=== PATIENT | female | born 1940 | race Caucasian/White ===

== ENCOUNTER 2019-03-22 11:23 | Emergency (ER) | payer MEDICARE ==
[~2019-03-22] VITALS: Ht 170.2 cm; Wt 65.0 kg
[2019-03-22] MEDS ORDERED: polyethylene glycol 3350 17gm powd pack PO SCH (12:30)
[2019-03-22] MEDS ORDERED: polyethylene glycol 3350 17gm powd pack PO ONE (12:30)
[2019-03-22 15:28] VITALS: BP 159/71
== END 2019-03-22 15:30 | disposition home or self-care (01) ==
LOC: ER 11:23
DX: K59.01 Slow transit constipation (principal); G89.29 Other chronic pain; Z88.0 Allergy status to penicillin
CPT/HCPCS: 74021; 99284

== ENCOUNTER 2019-10-25 12:13 | Emergency (ER) | payer MEDICARE ==
[~2019-10-25] VITALS: Ht 170.2 cm; Wt 66.5 kg
[2019-10-25] MEDS ORDERED: normal saline 1000ML IV soln IVB ONE (14:40)
[2019-10-25 14:57] LABS: BASOPHILS # (AUTO) 0.1 X10'3 (0-0.2); BASOPHILS % (AUTO) 0.9 % (0-1); EOSINOPHILS % (AUTO) 0.7 % (0-6); HEMATOCRIT 43.2 % (35.0-45.0); HEMOGLOBIN 14.7 g/dl (12.0-16.0); LYMPHOCYTES # (AUTO) 1.1 X10'3 (1.1-4.8); LYMPHOCYTES % (AUTO) 15.9 % (21-51); MEAN CORPUSCULAR HEMOGLOBIN 32.3 PG (27.0-31.0); MEAN CORPUSCULAR VOLUME 95.1 FL (78-98); MEAN PLATELET VOLUME 8.7 FL (7.4-10.4); MONOCYTES # (AUTO) 0.7 X10'3 (0-0.9); MONOCYTES % (AUTO) 9.9 % (2-12); NEUTROPHILS % (AUTO) 72.6 % (42-75); PLATELET COUNT 219 X10'3 (140-440); RED BLOOD COUNT 4.55 X10'6 (4.20-5.60); RED CELL DISTRIBUTION WIDTH 12.7 % (11.5-14.5); WHITE BLOOD COUNT 6.9 X10'3 (4.5-11.0)
[2019-10-25 15:10] LABS: CLARITY,URINE CLOUDY (Clear); COLOR,URINE YELLOW (Yellow); GLUCOSE, URINE NEGATIVE (Neg); KETONES,URINE NEGATIVE (Neg); LEUKOCYTE ESTERASE ,URINE NEGATIVE (Neg); NITRITES, URINE NEGATIVE (Neg); OCCULT BLOOD,URINE TRACE-INTACT (Neg); PROTEIN,URINE NEGATIVE (Neg); UROBILINOGEN,URINE 0.2 E.U/dL (0.2-1.0)
[2019-10-25 15:11] LABS: UA COLLECTION TYPE CLN CATCH MIDSTREAM
[2019-10-25 15:18] LABS: SQUAMOUS EPITHELIAL CELL,UR MANY /LPF (FEW)
[2019-10-25 15:19] LABS: MUCUS STRANDS FEW /LPF (Neg)
[2019-10-25 15:20] LABS: BACTERIA,URINE 2+ /HPF (Neg); RBC,URINE 0-2 /HPF (0-2); WBC,URINE 0-4 /HPF (0-4)
[2019-10-25 15:24] LABS: ALANINE AMINOTRANSFERASE 28 U/L (12-78); ALBUMIN 3.8 G/DL (3.4-5.0); ALBUMIN/GLOBULIN RATIO 1.2 (1.1-1.5); ALKALINE PHOSPHATASE 74 IU/L (46-116); ANION GAP 5 (8-16); ASPARTATE AMINO TRANSFERASE 26 U/L (10-37); BILIRUBIN,TOTAL 0.7 MG/DL (0.1-1.0); BLOOD UREA NITROGEN 12 MG/DL (7-18); BUN/CREATININE RATIO 17.6 (6.6-38.0); CALCIUM 9.5 MG/DL (8.5-10.1); CHLORIDE 105 MMOL/L (99-107); CREATININE 0.68 MG/DL (0.40-0.90); GLUCOSE 95 MG/DL (70-104); POTASSIUM 4.1 MMOL/L (3.5-5.1); SODIUM 140 MMOL/L (135-145); TOTAL CARBON DIOXIDE 29.8 MMOL/L (24-32); TOTAL PROTEIN 7.1 G/DL (6.4-8.2); eGFR 84 ML/MIN
[2019-10-25] MEDS ORDERED: propofol 10mg/ml 20ml vial IV ONE (16:25)
[2019-10-25] MEDS ORDERED: MIDAZolam 5mg/ml 2ml vial IV ONE (16:25)
[2019-10-25] MEDS ORDERED: propofol (Diprivan) 10mg/ml 100ml bottle IV ONE (17:30)
[2019-10-25 18:36] VITALS: BP 163/117
--- NOTE | 2019-10-25 18:41 | NUR ---
PT STATES SHE IS IN NO PAIN JUST MILD BURNING SENSATION IN VAGINAL/URETHRA AREA FROM MOSQUERA INSERTION. PT IS CALLING DAUGHTER TO PICK HER UP. SHE IS AOX4. NO DROWSINESS NOTED. V/S STABLE. FLUIDS FINISHING UP AT THIS TIME. WILL DC IV WHEN DAUGHTER GETS HERE.
--- NOTE | 2019-10-25 19:18 | NUR ---
PT'S UROMETER BAG SWITCHED OUT FOR A LEG MOSQUERA BAG. SHE WAS GIVEN AN EXTRA ONE. PT INSTRUCTED ON PROPER HYGIENE TO PREVENT URINARY TRACT INFECTION. SHE WAS INSTRUCTED TO COME BACK OR SEE DOCTOR IF SHE HAS S/S OF INFECTION OR SEE'S PURULANT URINE AND DEVELOPS FEVER. PT VERBALIZES UNDERSTANDING. SHE HAS AN APT NEXT WEEK AT [facility] ON THE .
== END 2019-10-25 19:24 | disposition home or self-care (01) ==
LOC: ER 12:14
DX: R33.9 Retention of urine, unspecified (principal); R10.2 Pelvic and perineal pain; R30.0 Dysuria; G89.29 Other chronic pain; Z88.0 Allergy status to penicillin
CPT/HCPCS: 36415; 51702; 80053; 81001; 85025; 99152; 99291; J2250; J2704; J7030

== ENCOUNTER 2019-10-29 15:33 | Emergency (ER) | payer MEDICARE ==
[~2019-10-29] VITALS: Ht 170.2 cm; Wt 66.2 kg
--- NOTE | 2019-10-29 16:29 | NUR ---
pt was bladder scanned with a result of 0. fc bag replaced.
[2019-10-29 17:04] VITALS: BP 142/77
== END 2019-10-29 17:06 | disposition home or self-care (01) ==
LOC: ER 15:33
DX: T83.098A Other mechanical complication of other urinary catheter, initial encounter (principal); G89.29 Other chronic pain; Z88.0 Allergy status to penicillin; Z87.440 Personal history of urinary (tract) infections; Y92.89 Other specified places as the place of occurrence of the external cause
CPT/HCPCS: 99284